=== PATIENT | male | born 2000 | race Caucasian/White ===

== ENCOUNTER 2021-06-09 09:02 | Emergency (ER) | payer OTHER, SELFPAY ==
--- NOTE | ~2021-06-09 | XR_ITS ---
EXAMINATION: XR foot LT min 3V DATE: 06/09/2021 09:22 INDICATION: Left foot pain TECHNIQUE: Dorsoplantar, lateral, and 2 oblique views of the left foot were obtained. COMPARISON: None. FINDINGS: There is dorsal soft tissue swelling foot overlying the metatarsals. No fracture, dislocati on, or subluxation is identified. The joint spaces are unremarkable. IMPRESSION: 1. No acute osseous abnormality. Reviewed, dictated and finalized at location A. [employer]
[2021-06-09 09:10] VITALS: BP 131/80; PULSE 86; RESP 18; TEMP 36.8; O2SAT 100
--- NOTE | 2021-06-09 09:22 | PC.NURSE ---
PT DECLINED ICE FOR COMFORT
--- NOTE | 2021-06-09 09:41 | ED.LOWEXIN ---
HPI - Extremity Injury (Lower) General Chief Complaint: Extremity Injury, Lower Stated Complaint: left foot injury Time Seen by Provider: 06/09/21 09:31 Source: patient and RN notes reviewed Mode of arrival: ambulatory Limitations: no limitations History of Present Illness HPI Narrative: Patient presents today complaining of a left foot injury. States he dropped something heavy on his foot 2 days ago at work. Currently rates his pain 5/10, which increases with weightbearing. He has been taking some Aleve with some relief. Reports some tingling in his first toe yesterday, that has since resolved. MD complaint: foot injury Related Data Home Medications Medication Instructions Recorded Confirmed buspirone mg 06/09/21 sertraline mg 06/09/21 Allergies Allergy/AdvReac Type Severity Reaction Status Date / Time No Known Allergies Allergy Unverified 06/20/13 11:25 Review of Systems Review of Systems: CONSTITUTIONAL: Denies body aches, fever, chills, or sweats. EYES: Denies visual changes, redness, or discharge. ENT: Denies rhinorrhea, congestion, sore throat, or otalgia. CARDIOVASCULAR: Denies chest pain, palpitations, or edema. RESPIRATORY: Denies cough or dyspnea. GASTROINTESTINAL: Denies abdominal pain, nausea, vomiting, or diarrhea. GENITOURINARY: Denies dysuria or hematuria. SKIN: Denies rash, itching, or wounds. MUSCULOSKELETAL: Denies back pain, or myalgia.+ Left foot injury NEUROLOGIC: Denies headache, numbness, tingling, or weakness. PSYCH: Denies depression or anxiety. PMFSH Comments At time of signature, I have reviewed and agree with nursing past medical, surgical, social and family history unless otherwise noted. Please see nursing chart for further information. There is no relevant family history pertinent to the presenting complaint Exam Narrative: GENERAL: Well-appearing, well-nourished, and in no acute distress. HEAD: Normocephalic, atraumatic. EYES: EOMI. No redness or drainage. Conjunctivae normal. ENT: Mucous membranes pink and moist. NECK: Normal AROM. CHEST: No respiratory distress. EXTREMITIES: Left foot: Mild localized edema to the distal dorsum of the foot with ecchymosis and tenderness to palpation. No other abnormalities. Toes are not affected. Distal sensation intact. Capillary refill normal. Pedal pulse normal. Full range of motion of all toes and ankle. SKIN: Warm, dry, no rash. Capillary refill normal. Normal skin turgor. NEURO: No focal deficits. Alert and oriented x3. Gait steady. PSYCH: Normal affect. No signs of depression or anxiety. Course Vital Signs Vital signs: Vital Signs Temperature 98.3 F 06/09/21 09:10 Pulse Rate 86 06/09/21 09:10 Respiratory Rate 18 06/09/21 09:10 Blood Pressure 131/80 06/09/21 09:10 Pulse Oximetry 100 06/09/21 09:10 Temperature 98.3 F 06/09/21 09:10 Pulse Rate 86 06/09/21 09:10 Respiratory Rate 18 06/09/21 09:10 Blood Pressure 131/80 06/09/21 09:10 Pulse Oximetry 100 06/09/21 09:10 Reviewed. Pt has been instructed to follow up with his PCP regarding his elevated blood pressure today. MDM - Extremity Injury (Lower) Differential Diagnosis Differential diagnosis: Likely other (Contusion, foot fracture) Imaging Data Radiologist's impression: ITS Impressions Foot X-Ray 06/09/21 09:25 IMPRESSION: 1. No acute osseous abnormality. Critical Care Time Critical Care Time Critical Care Time: No Discharge Plan Discharge Clinical Impression: Contusion of foot, left Qualifiers: Encounter type: initial encounter Qualified Code(s): S90.32XA - Contusion of left foot, initial encounter Patient Disposition: Home, Self-Care Condition: Stable Instructions: Contusion in Adults (ED) Additional Instructions: Your x-ray is negative for fracture today. Ice and elevate your foot. Take an anti-inflammatory such as Aleve or ibuprofen for pain and swelling. Follow-up with your
== END 2021-06-09 09:50 | disposition home or self-care (01) ==
PROVIDERS: Emergency Provider Nurse Practitioner; PCP Family Medicine
DX: S90.32XA Contusion of left foot, initial encounter (principal); W20.8XXA Other cause of strike by thrown, projected or falling object, initial encounter
CPT/HCPCS: 73630; 99203; G0463

== ENCOUNTER 2022-04-23 14:59 | Emergency (ER) | payer OTHER, SELFPAY ==
--- NOTE | 2022-04-23 15:08 | ED.BACK ---
HPI - Back Pain/Injury General Chief Complaint: Back Pain/Injury Stated Complaint: Low Back Pain Time Seen by Provider: 04/23/22 15:08 Source: patient, RN notes reviewed and old records reviewed Mode of arrival: ambulatory Limitations: no limitations History of Present Illness HPI Narrative: 21 year old male preset to express care with complaints of right lower back pain which radiates to right leg to mid thigh for the past 2 days with no known injury. Patient does report a lot of heavy lifting at his job, Patient reports tht yesterday his right foot did feel numb. He reports that pain is spasm like in nature rates his pain /10 and appears uncomfortable. Patient states no difficulty passing his urine or stool, no saddle parasthesia. Patient states that he has taken Vincent's pills for his discomfort. MD elicited complaint: back pain Onset (ago): day(s) (day 2 of symptoms) Pain scale (0-10): 9 Related Data Home Medications Medication Instructions Recorded Confirmed buspirone 5 mg tablet 5 mg PO DAILY 06/09/21 04/23/22 Allergies Allergy/AdvReac Type Severity Reaction Status Date / Time No Known Allergies Allergy Verified 04/23/22 15:11 Review of Systems Review of Systems: CONSTITUTIONAL: Denies fever, chills, or sweats. CARDIOVASCULAR: Denies chest pain, palpitations, or edema. RESPIRATORY: Denies cough or dyspnea. GASTROINTESTINAL: Denies abdominal pain, nausea, vomiting, or diarrhea. GENITOURINARY: Denies dysuria or hematuria. SKIN: Denies rash or itching. MUSCULOSKELETAL: Reports right sided back pain with some radiation of pain to right upper leg region laterally and dorsally. No other joint pain or myalgia. NEUROLOGIC: Denies headache,reports some numbness to his right foot yesterday none today, or weakness. All systems reviewed & are unremarkable except as noted in HPI and below PMFSH Past Medical History Medical History (Updated 04/25/22 @ 07:54 by Cheryl Segura NP) Anxiety Fracture of right upper extremity Surgical History Surgical History (Updated 04/25/22 @ 07:49 by Cheryl Segura NP) History of tonsillectomy Social History Social History (Updated 04/25/22 @ 07:51 by Cheryl Segura NP) Tobacco type: e-cigarettes/vaping Alcohol intake: former Alcohol use details: no alcohol for 2 months trying to lose weight Substance use: never Substance use type: does not use Living arrangements: with family Additional occupation/education comments: warehouse Gender identity (if verbalized by the patient): Male Comments At time of signature, agree with nursing past medical, surgical, social and family history. There is no relevant family history pertinent to the presenting complaint Exam Narrative: GENERAL: Well-appearing, well-nourished, and in no acute distress. HEAD: Normocephalic, atraumatic. EYES: PERRLA and EOMI. NECK: Supple. No lymphadenopathy. CHEST: Clear to auscultation. No respiratory distress. SAO2 99% on room air HEART: Regular rate and rhythm. Distal pulses palpable and equal, cap refill <3 seconds ABDOMEN: Soft, nontender, nondistended, normal active bowel sounds, no palpable or pulsatile masses. No CVA tenderness MUSCULOSKELETAL: Normal range of motion and strength in all extremities; 5/5 strength with hip flexion and extension, dorsiflexion and extension, knee flexion and extension, plantar flexion and extension. Normal sensation in dermatomal distributions with sensitivity to light touch and pain. No midline back tenderness to palpation. No paraspinal tenderness. Transfers from lying to sitting to standing. SKIN: Warm, dry, no rash. No ecchymosis, erythema, open wounds to back. NEURO: No focal deficits. Alert and oriented x3. Reflexes intact. Normal gait. PSYCH: Normal mood and affect Course Course Emergency Course: Patient is aware of diagnosis, understands and agrees to treatment plan. Anticipatory guidance given. Patient agrees to foll
[2022-04-23 15:10] VITALS: BP 149/91; PULSE 87; RESP 16; TEMP 36.6; O2SAT 99
[2022-04-23 15:12] VITALS: BP 149/91; PULSE 87; RESP 16; TEMP 36.6; O2SAT 99
== END 2022-04-23 15:39 | disposition home or self-care (01) ==
PROVIDERS: Emergency Provider Registered Nurse; PCP Family Medicine
DX: S39.012A Strain of muscle, fascia and tendon of lower back, initial encounter (principal); X58.XXXA Exposure to other specified factors, initial encounter; F41.9 Anxiety disorder, unspecified
CPT/HCPCS: 99213; G0463

== ENCOUNTER 2022-09-22 12:26 | Emergency (ER) | payer OTHER, SELFPAY ==
--- NOTE | 2022-09-22 12:28 | ED.URI ---
HPI - URI/Sore Throat General Chief Complaint: Upper Respiratory Infection Stated Complaint: sore throat/cough Time Seen by Provider: 09/22/22 12:28 Source: patient and RN notes reviewed History of Present Illness HPI Narrative: Patient is a 22-year-old male who presents to urgent care with complaints of sore throat, cough fever for 24 hours. Patient has not taken anything for his fever but has taken Mucinex for the cough. Denies any ill exposures. No other acute complaints. No acute distress noted. Patient aware of the plan of care. Some parts of this dictation were generated by voice recognition software and may contain typographical and/or grammatical inaccuracies. Related Data Home Medications Medication Instructions Recorded Confirmed buspirone 5 mg tablet 5 mg PO DAILY 06/09/21 04/23/22 sertraline 25 mg tablet mg 09/22/22 Allergies Allergy/AdvReac Type Severity Reaction Status Date / Time No Known Allergies Allergy Verified 04/23/22 15:11 Review of Systems Review of Systems: CONSTITUTIONAL: Reports of fever EYES: Denies visual changes, redness, or discharge. ENT: Denies rhinorrhea, congestion, of-care reports of sore CARDIOVASCULAR: Denies chest pain, palpitations, or edema. RESPIRATORY: Reports cough without dyspnea GASTROINTESTINAL: Denies abdominal pain, nausea, vomiting, or diarrhea. GENITOURINARY: Denies dysuria or hematuria. SKIN: Denies rash or itching. MUSCULOSKELETAL: Denies back pain, joint pain, or myalgia. NEUROLOGIC: Denies headache, numbness, or weakness. All other systems reviewed are negative, except as documented in HPI. [facility] Past Medical History Medical History (Updated 09/22/22 @ 13:05 by SATISH Gil) Anxiety Fracture of right upper extremity Surgical History Surgical History (Updated 04/25/22 @ 07:49 by Cheryl Segura NP) History of tonsillectomy Social History Social History (Updated 04/25/22 @ 07:51 by Cheryl Segura NP) Tobacco type: e-cigarettes/vaping Alcohol intake: former Alcohol use details: no alcohol for 2 months trying to lose weight Substance use: never Substance use type: does not use Living arrangements: with family Additional occupation/education comments: warehouse Gender identity (if verbalized by the patient): Male Comments At the time of my signature, I reviewed and agree with the nursing past medical, surgical, social, and family history. There is no relevant family history pertinent to the patient complaint. Exam Narrative: GENERAL: This is a well-nourished, well-developed patient, in no apparent distress. HEAD: normocephalic, atraumatic. EYES: PERRL. Sclera clear/white. Vision is grossly intact. EARS: External ears normal, auditory canals clear and without drainage, TMs normal without perforation. Hearing grossly intact. NOSE: External nose normal with no obvious nasal discharge, nares without redness, no rhinorrhea. THROAT: Mucous membranes moist, posterior pharynx clear. Moderate erythema to posterior pharynx moderate postnasal drainage NECK: Neck supple, non-tender without lymphadenopathy RESPIRATORY: Clear to auscultation. Breath sounds equal bilaterally. No wheezes, rales, or rhonchi. GASTROINTESTINAL: Abdomen soft, non-tender, nondistended. Bowel sounds are active. No hepato-splenomegaly, or palpable masses. No guarding. SKIN: warm, intact with no suspicious lesions or rash, good texture and turgor. NEURO: awake, alert, and oriented to person, place and time. There were no obvious focal neurologic abnormalities. EXTREMITIES: No clubbing, cyanosis, or edema. Course Course Level of Care: Express Care Visit Vital Signs Vital signs: Vital Signs Temperature 101.2 F H 09/22/22 12:34 Pulse Rate 97 09/22/22 12:34 Respiratory Rate 16 09/22/22 12:34 Blood Pressure 139/70 09/22/22 12:34 Pulse Oximetry 100 09/22/22 12:34 Oxygen Delivery Room Air 09/22/22 12:34 Temperature 101.2 F
[2022-09-22 12:34] VITALS: BP 139/70; PULSE 97; RESP 16; TEMP 38.4; O2SAT 100
== END 2022-09-22 13:14 | disposition home or self-care (01) ==
PROVIDERS: Emergency Provider Nurse Practitioner Family; PCP Family Medicine
DX: J02.9 Acute pharyngitis, unspecified (principal); F41.9 Anxiety disorder, unspecified; F17.290 Nicotine dependence, other tobacco product, uncomplicated
CPT/HCPCS: 87081; 87880; 99213; G0463

== ENCOUNTER 2022-12-03 20:17 | Emergency (ER) | payer OTHER, SELFPAY ==
[2022-12-03] VITALS (12 sets, daily range): BP systolic 100–128; BP diastolic 60–83; PULSE 65–90; RESP 12–20; TEMP 36.5–36.7; O2SAT 95–98
--- NOTE | ~2022-12-03 | XR_ITS ---
EXAMINATION: XR chest 2V DATE: 12/03/2022 21:05 INDICATION: Chest pain TECHNIQUE: PA and lateral views of the chest are obtained. COMPARISON: 10/20/2012 FINDINGS: The lungs are free of acute opacities. No pleural effusion or pneumothorax. The cardiomedia stinal silhouette is normal. The visualized bones and soft tissues are unremarkable. IMPRESSION: 1. No acute cardiopulmonary abnormality. Reviewed, dictated and finalized at location F.
--- NOTE | 2022-12-03 20:45 | ECG_ITS ---
Measurements Intervals [place] Rate: 76 P: 45 [place]: 123 QRS: 72 QRSD: 113 T: 31 QT: 372 QTc: 418 Interpretive Statements SINUS RHYTHM WITH SINUS ARRHYTHMIA MODERATE INTRAVENTRICULAR CONDUCTION DELAY [110+ ms QRS DURATION] NO PREVIOUS ECG AVAILABLE FOR COMPARISON Electronically Signed On 12-04-2022 10:49:53 CDT by Mark Roberts M.D.
[2022-12-03 20:57] LABS: Basophils Absolute Auto 0.1 K/mm3 (0.0-0.1); Basophils Percent Auto 0.5 % (0.2-1.2); Eosinophils Absolute Auto 0.4 K/mm3 (0-0.3); Eosinophils Percent Auto 3.5 % (0-4.4); Hematocrit 40.2 % (42.0-52.0); Hemoglobin 13.7 g/dL (14.0-18.0); Immature Granulocyte Absolute 0.03 K/mm3 (0.00-0.031); Immature Granulocyte Percent A 0.3 % (0-0.5); Lymphocytes Absolute Auto 3.35 K/mm3 (0.9-3.2); Lymphocytes Percent Auto 27.9 % (18.3-44.2); Mean Corpuscular HGB Conc 34.1 g/dl (32-36); Mean Corpuscular Hemoglobin 30.9 pg (26-34); Mean Corpuscular Volume 90.5 fl (80-100); Mean Platelet Volume 10.2 fl (7.4-10.4); Monocytes Absolute Auto 0.6 K/mm3 (0.1-0.6); Monocytes Percent Auto 5.2 % (2.6-8.5); Neutrophils Absolute Auto 7.5 K/mm3 (1.3-6.7); Neutrophils Percent Auto 62.6 % (45.5-73.1); Platelet Count Result 384 k/mm3 (150-375); Red Blood Count 4.44 M/mm3 (4.6-6.20); Red Cell Distribution Width 12.7 % (11.5-14.5)
[2022-12-03 21:07] LABS: Alanine Aminotransferase 27 U/L (6-50); Albumin Level 4.5 g/dL (3.5-5.1); Alkaline Phosphatase 55 U/L (38-126); Anion Gap 6 mmol/L (8-16); Aspartate Amino Transferase 30 U/L (17-59); Bilirubin,Total 0.5 mg/dL (0.2-1.3); Blood Urea Nitrogen 17 mg/dL (9-20); Calcium 9.2 mg/dL (8.4-10.2); Carbon Dioxide 28 mmol/L (22-30); Chloride 107 mmol/L (98-107); Estimated CRCL calculation 161 ml/min; Estimated Glomerular Filt Rate > 60; Glucose 89 mg/dL (65-110); Lipase 98 U/L (23-300); Sodium 141 mmol/L (137-145)
[2022-12-03 21:18] LABS: Troponin I < 0.012 ng/mL (0.000-0.034)
[2022-12-03] MEDS: IBUPROFEN 400 MG TABLET 800 MG PO (22:02)
[2022-12-03] MEDS: ACETAMINOPHEN 500 MG TABLET 1000 MG PO (22:02)
--- NOTE | 2022-12-03 22:20 | ED.GENADULT ---
HPI - General Adult General Chief complaint: Unspecified <AVANI Dunbar Last Filed: 12/04/22 01:18> Stated complaint: rib pain, shortness of breath <AVANI Dunbar Last Filed: 12/04/22 01:18> Time Seen by Provider: 12/03/22 21:34 <AVANI Dunbar Last Filed: 12/04/22 01:18> Source: patient <AVANI Dunbar Last Filed: 12/04/22 01:18> Mode of arrival: ambulatory <AVANI Dunbar Last Filed: 12/04/22 01:18> Limitations: no limitations <AVANI Dunbar Last Filed: 12/04/22 01:18> History of Present Illness HPI narrative: Patient is a 22 y/o male who presents to the ED with c/o left-sided chest wall pain. Patient reports he had a chiropractor appointment last and was told his rib was out of place. They attempted to reduce the rib and adjust his ribs, but patient states they were really just pressing hard on his chest. Patient has had pain in his left chest wall since then, worse with movements and taking deep breaths. He denies any shortness of breath, dyspnea with exertion, hemoptysis, nausea, vomiting, lower extremity pain or swelling, history of cardiac issues or blood clots. He tried taking naproxen once for the pain, but otherwise has not tried anything. <AVANI Dunbar Last Filed: 12/04/22 01:18> Related Data Home medications: Home Medications Medication Instructions Recorded Confirmed buspirone 5 mg tablet 5 mg PO DAILY 06/09/21 04/23/22 sertraline 25 mg tablet mg 09/22/22 <AVANI Dunbar Last Filed: 12/04/22 01:18> Allergies/adverse reactions: Allergies Allergy/AdvReac Type Severity Reaction Status Date / Time No Known Allergies Allergy Verified 04/23/22 15:11 <AVANI Dunbar Last Filed: 12/04/22 01:18> Review of Systems Review of Systems: CONSTITUTIONAL: Denies fever, chills, or sweats. CARDIOVASCULAR: See HPI. RESPIRATORY: See HPI. GASTROINTESTINAL: Denies abdominal pain, nausea, vomiting, or diarrhea. GENITOURINARY: Denies dysuria or hematuria. SKIN: Denies rash or itching. MUSCULOSKELETAL: See HPI. <Elidia Reyes PA-C - Last Filed: 12/04/22 01:18> All systems reviewed & are unremarkable except as noted in HPI and below <Elidia Reyes PA-C - Last Filed: 12/04/22 01:18> [facility] Past Medical History Medical History: Medical History Anxiety Fracture of right upper extremity <Elidia Reyes PA-C - Last Filed: 12/04/22 01:18> Surgical History Surgical History: Surgical History History of tonsillectomy <Elidia Reyes PA-C - Last Filed: 12/04/22 01:18> Social History Social History: Social History Tobacco type: e-cigarettes/vaping Alcohol intake: former Alcohol use details: no alcohol for 2 months trying to lose weight Substance use: never Substance use type: does not use Living arrangements: with family Additional occupation/education comments: [employer] Gender identity (if verbalized by the patient): Male <Elidia Reyes PA-C - Last Filed: 12/04/22 01:18> Exam Narrative: GENERAL: Well appearing, obese with BMI of 37.2, non-toxic, in no acute distress. HEAD: Normocephalic, atraumatic. NECK: Supple. No adenopathy, no masses. RESPIRATORY: Airway patent, respirations nonlabored. Clear to auscultation bilaterally, no rales, rhonchi, wheezing. CARDIOVASCULAR: Regular rate and rhythm without murmurs, rubs, or gallops. Radial pulses 2+ and equal bilaterally. ABDOMINAL: Soft, nontender, nondistended, no hepatosplenomegaly. Normoactive BS. MUSCULOSKELETAL: Moves all extremities. Strength/ROM intact without gross deformities. No calf tenderness. No edema. Tenderness
[2022-12-03 22:25] LABS: Partial Thromboplastin Time 32.2 SECONDS (22.3-36.8); Prothrombin Time 13.8 Seconds (11.1-14.7)
--- NOTE | 2022-12-03 23:29 | PC.NURSE ---
Spoke with Elidia SAL who advised 3 hour troponin not needed for patient.
== END 2022-12-03 23:51 | disposition home or self-care (01) ==
PROVIDERS: Emergency Medicine; Emergency Provider Physician Assistant; PCP Family Medicine
DX: S20.212A Contusion of left front wall of thorax, initial encounter (principal); F41.9 Anxiety disorder, unspecified; F17.290 Nicotine dependence, other tobacco product, uncomplicated; X58.XXXA Exposure to other specified factors, initial encounter
CPT/HCPCS: 36415; 71046; 80053; 83690; 84484; 85025; 85610; 85730; 93005; 99284; A9270

== ENCOUNTER 2023-10-13 08:19 | Emergency (ER) | payer OTHER, SELFPAY ==
--- NOTE | ~2023-10-13 | XR_ITS ---
Lumbosacral Spine: AP, oblique, and lateral views Clinical History: Pain Findings: The normal lordotic curve is maintained. The vertebral bodies and posterior elements are i ntact. The intervertebral disc spaces are preserved. The sacroiliac joints are normally outlined. Impression: No significant abnormality. Reviewed, dictated and finalized at [facility]. Impression: No significant abnormality.
[2023-10-13 08:24] VITALS: BP 149/83; PULSE 66; RESP 20; TEMP 36.4; O2SAT 100
--- NOTE | 2023-10-13 08:45 | ED.BACK ---
HPI - Back Pain/Injury General Chief Complaint: Back Pain/Injury Stated Complaint: lower back pain Time Seen by Provider: 10/13/23 08:39 Source: patient Mode of arrival: ambulatory Limitations: no limitations History of Present Illness HPI Narrative: 23 year old male presents to [facility] care with complaints of lumbar back pain which does radiate down his outer thigh midway.Patient reports that pain has increased this past month and noted specific increase in his discomfort since yesterday. Patient reports no known recent injury states that he does heavy lifting at work and he does work out daily.He states that he always wears back supports brace when working and when working out. He states that he has seen chiropractor in past and had film in their office and was told he had pelvic tilt dysfunction. Patient reports that he has had intermittent lumbar back pain for years, was seen in clinic for same problem in 2021. Patient denies any bowel or bladder problems or any pelvic paraesthesia. Patient states that he has some popping feeling to right hip at times. MD elicited complaint: back pain Pertinent past history: prior back pain Onset (ago): month(s) (one month increase with specific increase since yesterday.) Pain scale (0-10): 4 Similar Symptoms Previously: Yes Location: lumbar spine Related Data Allergies Allergy/AdvReac Type Severity Reaction Status Date / Time No Known Allergies Allergy Verified 10/13/23 08:28 Review of Systems Review of Systems: CONSTITUTIONAL: Denies fever, chills, or sweats. CARDIOVASCULAR: Denies chest pain, palpitations, or edema. RESPIRATORY: Denies cough or dyspnea. GASTROINTESTINAL: Denies abdominal pain, nausea, vomiting, or diarrhea. GENITOURINARY: Denies dysuria or hematuria. SKIN: Denies rash or itching. MUSCULOSKELETAL: Reports lumbar back pain. Joint pain or myalgia. NEUROLOGIC: Denies headache, numbness, or weakness. All systems reviewed & are unremarkable except as noted in HPI and below PMFSH Past Medical History Medical History Anxiety Fracture of right upper extremity Lumbar back pain Surgical History Surgical History History of tonsillectomy Social History Social History Tobacco type: e-cigarettes/vaping Alcohol intake: former Alcohol use details: no alcohol for 2 months trying to lose weight Substance use: never Substance use type: does not use Living arrangements: with family Additional occupation/education comments: warehouse Gender identity (if verbalized by the patient): Male Comments At time of signature, agree with nursing past medical, surgical, social and family history. There is no relevant family history pertinent to the presenting complaint Exam Narrative: GENERAL: Well-appearing, well-nourished, and in no acute distress. HEAD: Normocephalic, atraumatic. EYES: PERRLA and EOMI. NECK: Supple. No lymphadenopathy. CHEST: Clear to auscultation. No respiratory distress. HEART: Regular rate and rhythm. Distal pulses palpable and equal, cap refill <3 seconds ABDOMEN: Soft, nontender, nondistended, normal active bowel sounds, no palpable or pulsatile masses. No CVA tenderness MUSCULOSKELETAL: Normal range of motion and strength in all extremities; 5/5 strength with hip flexion and extension, dorsiflexion and extension, knee flexion and extension, plantar flexion and extension. Normal sensation in dermatomal distributions with sensitivity to light touch and pain. No midline back tenderness to palpation. No paraspinal tenderness. Transfers from lying to sitting to standing. pain across lower lumbar back with some radiation to the outside of right thigh down midway. SKIN: Warm, dry, no rash. No ecchymosis, erythema, open wounds to back. NEURO: No focal deficits. Alert and reuben
== END 2023-10-13 09:40 | disposition home or self-care (01) ==
PROVIDERS: Emergency Provider Registered Nurse; PCP Family Medicine
DX: M54.50 Low back pain, unspecified (principal); F17.290 Nicotine dependence, other tobacco product, uncomplicated
CPT/HCPCS: 72110; 99213; G0463